=== PATIENT | male | born 1960 | race American Indian/Alaskan Native ===

== ENCOUNTER 2018-02-09 13:30 | Emergency (ER) | payer OTHER, BC ==
[2018-02-09 14:02] VITALS: BP 165/90
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
[2018-02-09] MEDS ORDERED: FLEXERIL PO ONE (18:05)
[2018-02-09] MEDS ORDERED: MOTRIN PO ONE (18:05)
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
== END 2018-02-09 19:09 | disposition home or self-care (01) ==
LOC: ED 13:30
DX: M54.42 Lumbago with sciatica, left side (principal); F17.200 Nicotine dependence, unspecified, uncomplicated; V49.49XA Driver injured in collision with other motor vehicles in traffic accident, initial encounter; Y93.89 Activity, other specified; Y92.89 Other specified places as the place of occurrence of the external cause; Y99.8 Other external cause status
CPT/HCPCS: 72100